=== PATIENT | female | born 1945 | race Two or more races ===

== ENCOUNTER 2017-10-08 08:06 | Outpatient (CLI) | payer OTHER | END 2017-10-08 08:09 | disposition home or self-care (01) | LOC: SONOGRAMA 08:06 | DX: E04.1 Nontoxic single thyroid nodule (principal) ==

== ENCOUNTER 2019-12-08 08:52 | Outpatient (CLI) | payer OTHER | END 2019-12-08 10:00 | disposition home or self-care (01) | LOC: SONOGRAMA 08:52 | PROVIDERS: ATTEND Pathology Anatomic Pathology & Clinical Pathology | DX: E04.2 Nontoxic multinodular goiter (principal) ==